=== PATIENT | female | born 1985 | race Asian ===

== ENCOUNTER 2016-05-17 08:37 | Emergency (ER) | payer OTHER ==
[~2016-05-17] VITALS: Ht 152.4 cm; Wt 66.0 kg
[~2016-05-17 08:37] MED LIST: MTR600X PO
[2016-05-17 08:41] VITALS: TEMP 36.7; Ht 152.4 cm; Wt 66.0 kg
[2016-05-17] MEDS ORDERED: SODIUM CHLORIDE 0.9% 1000ML 1,000 ML IV SCH (09:15)
--- NOTE | 2016-05-17 09:36 | EMERGENCY ROOM VISIT NOTE ---
History Report prepared by Scribe: Keeley Meadows Under the Supervision of: Dr. Elisa Gallegos M.D. First contact with patient: 08:48 Chief Complaint: ABNORMAL LABS Stated Complaint: WAS PREG., BLEEDING STARTED ON MON., HCG LEVEL UP History of Present Illness The patient is a 31 year old female who presents to the Emergency Room with complaints of persistent abnormal lab results. She is approximately 7 weeks . She reports she started experiencing vaginal bleeding 6 days ago. The patient has a history of ectopic and states she is concerned about another ectopic currently. Her most recent HCG was performed yesterday. She denies any recent abdominal pain and states she thinks her vaginal bleeding has resolved. 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 A total of 10 systems reviewed and were otherwise negative. Past Medical & Surgical Medical Problems: (1) No Known Active Medical Problems Family History Diabetes mellitus Hypertension Social History Smoking Status: Never Smoker Alcohol Use: none Drug Use: none Marital Status: Housing Status: lives with significant other Occupation Status: unemployed Current/Historical Medications Scheduled PRN Ibuprofen (Ibuprofen), 600 MG PO Q6H PRN for Pain Allergies Coded Allergies: No Known Allergies (Unverified , 05/17/16) Physical Exam Vital Signs Date Time Temp Pulse Resp B/P Pulse Ox O2 Delivery O2 Flow Rate FiO2 05/17/16 13:20 90 18 113/75 100 Room Air 05/17/16 11:18 88 16 106/77 98 Room Air 05/17/16 08:41 36.7 111 20 134/86 100 Room Air Physical Exam Vital signs reviewed. General: Well-appearing 31 year old female, in no significant distress. HEENT: No scleral icterus, PERRLA, neck supple. Atraumatic. Cardiovascular: Regular rate and rhythm, no extra sounds. Pulmonary: Clear to auscultation bilaterally, normal work of breathing. Abdomen: Soft, nontender, nondistended, positive bowel sounds. Musculoskeletal: Atraumatic, no peripheral edema. Neurologic: Patient awake alert and oriented x 3 Skin: Warm, dry, no rash Medical Decision & Procedures ER Provider Diagnostic Interpretation: This Ultrasound was reviewed and interpreted by the radiologist and reviewed by myself. PELVIC ULTRASOUND TO EVALUATE FOR ECTOPIC IMPRESSION: 1. No intrauterine gestational sac identified. If positive test, differential considerations include normal early intrauterine gestation, missed spontaneous and sonographically occult ectopic . Close clinical follow-up, including serial beta hCG levels, is recommended. 2. Suspected 1.5 cm right ovarian corpus luteal cyst. Electronically signed by: Paco Watt M.D. 05/17/2016 11:09 AM Laboratory Results 05/17/16 09:34 Red Blood Count 4.79, Mean Corpuscular Volume 86.0, Mean Corpuscular Hemoglobin 29.0, Mean Corpuscular Hemoglobin Concent 33.7, Mean Platelet Volume 9.5, Neutrophils (%) (Auto) 62.3, Lymphocytes (%) (Auto) 31.4, Monocytes (%) (Auto) 5.3, Eosinophils (%) (Auto) 0.4, Basophils (%) (Auto) 0.3, Neutrophils # (Auto) 4.44, Lymphocytes # (Auto) 2.24, Monocytes # (Auto) 0.38, Eosinophils # (Auto) 0.03, Basophils # (Auto) 0.02 05/17/16 09:34 Test 05/17/16 09:34 05/17/16 10:25 White Blood Count 7.13 K/uL (4.8-10.8) Red Blood Count 4.79 M/uL (4.2-5.4) Hemoglobin 13.9 g/dL (12.0-16.0) Hematocrit 41.2 % (37-47) Mean Corpuscular Volume 86.0 fL (80-100) Mean Corpuscular Hemoglobin 29.0 pg (25-34) Mean Corpuscular Hemoglobin Concent 33.7 g/dl (32-36) Platelet Count 364 K/uL (130-400) Mean Platelet Volume 9.5 fL (7.4-10.4) Neutrophils (%) (Auto) 62.3 % Lymphocytes (%) (Auto) 31.4 % Monocytes (%) (Auto) 5.3 % Eosinophils (%) (Auto) 0.4 % Basophils (%) (Auto) 0.3 % Neutrophils # (Auto) 4.44 K/uL (1.4-6.5) Lymphocytes # (Auto) 2.24 K/uL (1.2-3.4) Monocytes # (Auto) 0.38 K/uL (0.11-0.59) Eosinophils # (Auto) 0.03 K/uL (0-0.5) Basophils # (Auto) 0.02 K/uL (0-0.2) RDW Standard Deviation 41.0 fL (36.4-46.3) RDW Coefficient of Variation 13.0 % (11.5-14.5) Immature Granulocyte % (Auto) 0.3 % Immature Granulocyte # (Auto) 0.02 K/uL (0.00-0.02) Anion Gap 8.0 mmol/L (3-11) Est Creatinine Clear Calc Drug Dose 110.4 ml/min Estimated GFR () 138.3 Estimated GFR (Non- 119.3 BUN/Creatinine Ratio 10.2 (10-20) Calcium Level 9.1 mg/dl (8.5-10.1) Progesterone Level 1.85 ng/mL Human Chorionic Gonadotropin, Quant 162 mIU/mL Laboratory results per my review. Medications Administered Medications (Trade) Dose Ordered Sig/Celsa Route Start Time Stop Time Status Last Admin Dose Admin Sodium Chloride (Nss 1000ml) 1,000 ml @ 999 mls/hr Q1H1M IV 05/17/16 09:15 05/17/16 13:39 DC 05/17/16 09:15 999 MLS/HR ED Course 0910: Past medical records reviewed. The patient was evaluated in room A10. A complete history and physical examination was performed. 0915: NSS 1000 ml @ 999 mls/hr IV. 1145: I discussed the patients case with Edwige Diaz CURRICULUM ADVISORY TEACHER. The patient will be further evaluated. 1215: I reevaluated the patient. I reassured her on her results so far. 1320: I reevaluated the patient. She is feeling much better. I discussed her results and discharge instructions and she verbalized complete understanding and agreement. Medical Decision DDx: Etiologies such as threatened , ectopic , dysfunction uterine bleeding, bleeding dyscrasia, trauma, infection, as well as others were entertained. This patient was evaluated and appeared to be in no significant distress. IV access was obtained and laboratory work was drawn. The patient was placed on the geological science teacher and found to be in a normal sinus rhythm. Vital signs are stable. She was hydrated with normal saline solution. Laboratory work reveals a moderately elevated beta hCG at 162. Her hCG at the outside facility was 117 yesterday, by report. Ultrasound of the pelvis was performed and reveals a likely corpus luteal cyst, no IUP, no evidence of ectopic at this time. Patient has an Rh+ blood type. Case was discussed with Dr. Nicole, by my resident Dr Archer, who evaluated the patient emergency department. He feels she can be followed up as an outpatient this week. The patient was made aware of the plan and agrees. She will return to the ER for worsening of symptoms or any medical concerns. Consults Time Called: 1140 Consulting Physician: Edwige Diaz CURRICULUM ADVISORY TEACHER Returned Call: [phone] I discussed the patients case with Edwige Diaz CURRICULUM ADVISORY TEACHER. The patient will be further evaluated. Impression Primary Impression: Threatened Scribe Attestation The scribe's documentation has been prepared under my direction and personally reviewed by me in its entirety. I confirm that the note above accurately reflects all work, treatment, procedures, and medical decision making performed by me. Departure Information Dispostion Home / Self-Care Referrals James Ken M.D. (PCP) Patient Instructions My [facility] Additional Instructions -If your symptoms worsen or you experience increase in vaginal bleeding or abdominal pain, or fevers/chills, please call CURRICULUM ADVISORY TEACHER clinic or return to Emergency Dept. -Followup with CURRICULUM ADVISORY TEACHER this week for evaluation and trending of quantitative B- HCG Levels
--- NOTE | 2016-05-17 10:25 | EMERGENCY ROOM VISIT NOTE ---
History First contact with patient: 08:48 Chief Complaint: ABNORMAL LABS Stated Complaint: WAS PREG., BLEEDING STARTED ON MON., HCG LEVEL UP History of Present Illness The patient is a 31 year old female with hx of ectopic and Spontaneous Abortions x5 who presents to the Emergency Room for evaluation due to increasing quantitative B-HCG levels. Patient reports at 7 wks of she had 4 days of vaginal bleeding and clots (05/12) which has since resolved. BHCG levels since episode have monitored at [facility] and according to patient have continued to rise to 176 as of yesterday. Patient was concerned of ectopic . She denies Abdominal pain, N/V, further vaginal bleeding. Pt denies headache, change in vision, fevers, chest pain, shortness of breath, nausea, vomiting, diarrhea, pain with urination, and melena. Review of Systems See HPI for pertinent positives & negatives. A total of 10 systems reviewed and were otherwise negative. Past Medical/Surgical History Medical Problems: (1) No Known Active Medical Problems Family History Diabetes mellitus Hypertension Social History Smoking Status: Never Smoker Alcohol Use: none Drug Use: none Marital Status: Housing Status: lives with significant other Occupation Status: unemployed Current/Historical Medications Scheduled PRN Ibuprofen (Ibuprofen), 600 MG PO Q6H PRN for Pain Allergies Coded Allergies: No Known Allergies (Unverified , 05/17/16) Physical Exam Vital Signs Date Time Temp Pulse Resp B/P Pulse Ox O2 Delivery O2 Flow Rate FiO2 05/17/16 13:20 90 18 113/75 100 Room Air 05/17/16 11:18 88 16 106/77 98 Room Air 05/17/16 08:41 36.7 111 20 134/86 100 Room Air Physical Exam GENERAL: alert, well appearing, well nourished, no distress, non-toxic EYE EXAM: normal conjunctiva, PERRL and EOM's grossly intact NECK: supple, no nuchal rigidity, no adenopathy, non-tender LUNGS: Clear to auscultation. Normal chest wall mechanics HEART: no murmurs, S1 normal and S2 normal ABDOMEN: abdomen soft, non-tender, normo-active bowel sounds, no masses, no rebound or guarding. BACK: Back is symmetrical on inspection and there is no deformity, no midline tenderness SKIN: no rashes and no bruising UPPER EXTREMITIES: upper extremities are grossly normal. LOWER EXTREMITIES: No pitting edema. NEURO EXAM: Normal sensorium, cranial nerves II-XII grossly intact, normal speech, no gross weakness of arms, no gross weakness of legs. Medical Decision & Procedures ER Provider Diagnostic Interpretation: PELVIC ULTRASOUND TO EVALUATE FOR ECTOPIC CLINICAL HISTORY: . Vaginal bleeding. COMPARISON STUDY: Pelvic ultrasound March 30, 2013. TECHNIQUE: Transabdominal and transvaginal sonography of the pelvis was performed. FINDINGS: The uterus measures 7.9 x 4.4 x 5.5 cm. Endometrium measures 4 mm in thickness. No intrauterine gestational sac was identified. The right ovary measures 2.9 x 2.1 x 2 cm and the left measures 3.7 x 2.1 x 2.5 cm. Color flow is identified within each ovary. A complex cystic right ovarian lesion measuring 1.5 cm may reflect a corpus luteal cyst. No free fluid was identified. No adnexal mass is identified. IMPRESSION: 1. No intrauterine gestational sac identified. If positive test, differential considerations include normal early intrauterine gestation, missed spontaneous and sonographically occult ectopic . Close clinical follow-up, including serial beta hCG levels, is recommended. 2. Suspected 1.5 cm right ovarian corpus luteal cyst. Laboratory Results 05/17/16 09:34 Red Blood Count 4.79, Mean Corpuscular Volume 86.0, Mean Corpuscular Hemoglobin 29.0, Mean Corpuscular Hemoglobin Concent 33.7, Mean Platelet Volume 9.5, Neutrophils (%) (Auto) 62.3, Lymphocytes (%) (Auto) 31.4, Monocytes (%) (Auto) 5.3, Eosinophils (%) (Auto) 0.4, Basophils (%) (Auto) 0.3, Neutrophils # (Auto) 4.44, Lymphocytes # (Auto) 2.24, Monocytes # (Auto) 0.38, Eosinophils # (Auto) 0.03, Basophils # (Auto) 0.02 05/17/16 09:34 Test 05/17/16 09:34 05/17/16 10:25 White Blood Count 7.13 K/uL (4.8-10.8) Red Blood Count 4.79 M/uL (4.2-5.4) Hemoglobin 13.9 g/dL (12.0-16.0) Hematocrit 41.2 % (37-47) Mean Corpuscular Volume 86.0 fL (80-100) Mean Corpuscular Hemoglobin 29.0 pg (25-34) Mean Corpuscular Hemoglobin Concent 33.7 g/dl (32-36) Platelet Count 364 K/uL (130-400) Mean Platelet Volume 9.5 fL (7.4-10.4) Neutrophils (%) (Auto) 62.3 % Lymphocytes (%) (Auto) 31.4 % Monocytes (%) (Auto) 5.3 % Eosinophils (%) (Auto) 0.4 % Basophils (%) (Auto) 0.3 % Neutrophils # (Auto) 4.44 K/uL (1.4-6.5) Lymphocytes # (Auto) 2.24 K/uL (1.2-3.4) Monocytes # (Auto) 0.38 K/uL (0.11-0.59) Eosinophils # (Auto) 0.03 K/uL (0-0.5) Basophils # (Auto) 0.02 K/uL (0-0.2) RDW Standard Deviation 41.0 fL (36.4-46.3) RDW Coefficient of Variation 13.0 % (11.5-14.5) Immature Granulocyte % (Auto) 0.3 % Immature Granulocyte # (Auto) 0.02 K/uL (0.00-0.02) Anion Gap 8.0 mmol/L (3-11) Est Creatinine Clear Calc Drug Dose 110.4 ml/min Estimated GFR () 138.3 Estimated GFR (Non- 119.3 BUN/Creatinine Ratio 10.2 (10-20) Calcium Level 9.1 mg/dl (8.5-10.1) Progesterone Level 1.85 ng/mL Human Chorionic Gonadotropin, Quant 162 mIU/mL Medications Administered Medications (Trade) Dose Ordered Sig/Celsa Route Start Time Stop Time Status Last Admin Dose Admin Sodium Chloride (Nss 1000ml) 1,000 ml @ 999 mls/hr Q1H1M IV 05/17/16 09:15 05/17/16 13:39 DC 05/17/16 09:15 999 MLS/HR Medical Decision 31 yo F w/ hx of ectopic p/w Hx of vaginal bleeding x 4 days now resolved 2 days ago, hx of increasing HCG up to 117 day before arrival concerning about ectopic preg. current HCG of 162. CBC- Unremarkable BMP-unremarkable TV U/S- no intrauterine sac observed, Suspected 1.5 cm right ovarian corpus luteal cyst. RH status: Positive -Given 1 L Fluids - HX of vaginal bleeding, rising HCG likely due to threatened vs. IUP. Ectopic unlikely lack of pain. no evidence on TV U/S. -Discussed case with Dr. Nicole ( [facility] SUBCONTRACT ADMINISTRATOR), who was not suspicious of ectopic at this time and could not rule IUP vs S.A. vs Threatened , advised outpatient followup and trending of HCG. -Patient was discharged with follow up to [facility] OBGYN Impression Primary Impression: Threatened Departure Information Referrals James Kne M.D. (PCP) Patient Instructions My [facility] Resident Tracking Resident Involvement: Resident Care Provided Care Provided: Adult ED
[2016-05-17 10:41] LABS: BASO % 0.3 %; BASO ABS # 0.02 K/uL (0-0.2); COMPLETE YES; EOS % 0.4 %; HEMATOCRIT 41.2 % (37-47); IG% 0.3 %; LYMPH % 31.4 %; LYMPH ABS # 2.24 K/uL (1.2-3.4); MEAN CORPUSCULAR HGB CONC 33.7 g/dl (32-36); MEAN PLATELET VOLUME 9.5 fL (7.4-10.4); MONO % 5.3 %; NEUT % 62.3 %; PLATELET COUNT 364 K/uL (130-400); RED BLOOD COUNT 4.79 M/uL (4.2-5.4); WHITE BLOOD COUNT 7.13 K/uL (4.8-10.8)
--- NOTE | 2016-05-17 11:11 | DIAGNOSTIC IMAGING REPORT ---
PELVIC ULTRASOUND TO EVALUATE FOR ECTOPIC CLINICAL HISTORY: . Vaginal bleeding. COMPARISON STUDY: Pelvic ultrasound March 30, 2013. TECHNIQUE: Transabdominal and transvaginal sonography of the pelvis was performed. FINDINGS: The uterus measures 7.9 x 4.4 x 5.5 cm. Endometrium measures 4 mm in thickness. No intrauterine gestational sac was identified. The right ovary measures 2.9 x 2.1 x 2 cm and the left measures 3.7 x 2.1 x 2.5 cm. Color flow is identified within each ovary. A complex cystic right ovarian lesion measuring 1.5 cm may reflect a corpus luteal cyst. No free fluid was identified. No adnexal mass is identified. IMPRESSION: 1. No intrauterine gestational sac identified. If positive test, differential considerations include normal early intrauterine gestation, missed spontaneous and sonographically occult ectopic . Close clinical follow-up, including serial beta hCG levels, is recommended. 2. Suspected 1.5 cm right ovarian corpus luteal cyst. Electronically signed by: Paco Watt M.D. 05/17/2016 11:09 AM Dictated Date/Time: 05/17/2016 11:06 AM
[2016-05-17 11:22] LABS: BUN/CREATININE RATIO 10.2 (10-20); CALCIUM 9.1 mg/dl (8.5-10.1); CREATININE 0.62 mg/dl (0.60-1.20)
[2016-05-17 13:20] VITALS: BP 113/75; PULSE 90; O2SAT 100
--- NOTE | 2016-05-18 20:54 | GYNECOLOGICAL CONSULTATION ---
DATE OF CONSULTATION: 05/17/2016 Consult placed by Elisa Gallegos MD HISTORY OF PRESENT ILLNESS: This is a 31-year-old, G2, P1, who presented to the Emergency Room with vaginal bleeding. The patient is 7 weeks' and had been seen in the office with vaginal spotting. She was being watched for possible ectopic . In the ER, she had no shortness of breath, no chills, no fever. She denied any abdominal pain. She had an episode of vaginal bleeding, was concerned and that is why she came to the Emergency Room. As stated above, the patient is being watched for possible ectopic and serial hCG titers had increased from 117 to 170 in 24 hours. The patient was very concerned because she had a history of ectopic about 6 months ago and underwent a right fallopian tube removal. She is very worried that she might need a surgery and therefore came to the Emergency Room hoping for some different recommendation. PAST MEDICAL HISTORY: No history of diabetes, hypertension or asthma. PAST SURGICAL HISTORY: Right fallopian tube removed. SOCIAL HISTORY: The patient denies tobacco, drug or alcohol use. FAMILY HISTORY: Noncontributory. ALLERGIES: No known drug allergies. PHYSICAL EXAMINATION: VITAL SIGNS: Temperature 36.7, pulse 88, respirations 20 and blood pressure 134/86. HEART: S1, S2, regular rhythm and rate. LUNGS: Clear to auscultation bilaterally. ABDOMEN: Nontender, nondistended, positive bowel sounds. There is no guarding. There is no rebound. No CVA tenderness. PELVIC: There is some mild blood in the vagina. No cervical motion tenderness. The uterus is about 6 to 8 weeks' size. EXTREMITIES: No cyanosis, clubbing or edema. ASSESSMENT AND PLAN: A 31-year-old G2, P0 at 7 weeks' . The patient has history of ectopic which led to right fallopian tube removal. She is again and is having some bleeding; therefore following hCG titers. There is obviously concern for an ectopic , but at this point we have no reason to think so. We have not seen any abnormal findings presently on ultrasound to indicate an ectopic ; however, at the beta hCG this low we also cannot rule out a complete IUP. I once again had a discussion with the patient and explained the concerns. She understands that she is being monitored and she had been reassured. She will follow up with us in the office with serial hCG as we have been doing. The patient has been reassured. I have reviewed once again with her the ectopic precautions and why we are doing so. She will follow up with me in the office. She has been discharged in stable condition. BHAVYA
== END 2016-05-17 13:30 | disposition home or self-care (01) ==
LOC: C.EDB 08:38 → C.EDA 13:30
DX: O20.0 Threatened abortion (principal); Z3A.01 Less than 8 weeks gestation of pregnancy; Z83.3 Family history of diabetes mellitus; Z82.49 Family history of ischemic heart disease and other diseases of the circulatory system; Z90.79 Acquired absence of other genital organ(s)

== ENCOUNTER 2016-05-25 09:27 | Emergency (ER) | payer OTHER ==
[~2016-05-25] VITALS: Ht 152.4 cm; Wt 61.6 kg
[2016-05-25 09:41] VITALS: TEMP 36.8; Ht 152.4 cm; Wt 61.6 kg
[2016-05-25] MEDS ORDERED: PROG100C6 PO (10:03)
[2016-05-25 10:52] LABS: BASO % 0.1 %; BASO ABS # 0.01 K/uL (0-0.2); COMPLETE YES; EOS % 0.4 %; HEMATOCRIT 41.2 % (37-47); IG% 0.2 %; LYMPH % 28.7 %; LYMPH ABS # 2.34 K/uL (1.2-3.4); MEAN CELL VOLUME 86.4 fL (80-100); MEAN CORPUSCULAR HEMOGLOBIN 29.1 pg (25-34); MEAN CORPUSCULAR HGB CONC 33.7 g/dl (32-36); MEAN PLATELET VOLUME 9.5 fL (7.4-10.4); NEUT % 64.6 %; PLATELET COUNT 326 K/uL (130-400); RED BLOOD COUNT 4.77 M/uL (4.2-5.4); WHITE BLOOD COUNT 8.16 K/uL (4.8-10.8)
[2016-05-25 11:24] LABS: BUN/CREATININE RATIO 10.3 (10-20); CALCIUM 8.9 mg/dl (8.5-10.1); CREATININE 0.64 mg/dl (0.60-1.20); POTASSIUM 3.8 mmol/L (3.5-5.1)
--- NOTE | 2016-05-25 11:44 | DIAGNOSTIC IMAGING REPORT ---
ULTRASOUND TO EVALUATE FOR ECTOPIC CLINICAL HISTORY: Right lower quadrant pain. 8 weeks . COMPARISON STUDY: ultrasound May 17, 2016. FINDINGS: The uterus measures 7.8 x 4.6 x 5.8 cm. Endometrium measures 7 mm in thickness. No intrauterine gestational sac was identified. Note was made of a possible fundal fibroid measuring approximately 2.2 cm. Color flow is identified within each ovary. The left ovary is sonographically normal. A 1.4 cm echogenic right ovarian lesion may reflect a corpus luteal cyst. This likely arises from the right ovary. In addition, note is made of a 1.7 cm lesion either arising from or adjacent to the right ovary which may contain a gestational sac and yolk sac. This finding is not definitive. This has peripheral hypervascularity. There is no free fluid. IMPRESSION: No intrauterine gestational sac identified. 1.7 cm right adnexal structure. By sonography, is difficult to determine whether this arises from or is adjacent to the right ovary and this could contain a gestational sac with yolk sac. This could reflect an ectopic or corpus luteal cyst. Given positive test, differential considerations include an ectopic , normal early intrauterine gestation and missed spontaneous . No free fluid. Correlation with beta hCG levels is recommended. Discussed with Dr. Gallegos time of dictation. Electronically signed by: Paco Watt M.D. 05/25/2016 11:42 AM Dictated Date/Time: 05/25/2016 11:31 AM
[2016-05-25 13:05] LABS: ALKALINE PHOSPHATASE 86 U/L (45-117); ALT/SGPT 18 U/L (12-78); AST/SGOT 11 U/L (15-37)
[2016-05-25] MEDS ORDERED: METHOTREXATE SOD IM ONE (13:30)
[2016-05-25 14:15] VITALS: BP 123/68; PULSE 72; O2SAT 99
--- NOTE | 2016-05-25 17:13 | EMERGENCY ROOM VISIT NOTE ---
History Report prepared by Anneliese: Rupa Magdaleno Under the Supervision of: Dr. Elisa Gallegos M.D. First contact with patient: 09:46 Chief Complaint: ABDOMINAL PAIN Stated Complaint: 8 WEEKS / PAIN ON RIGHT SIDE Nursing Triage Summary: Patient states she is 8 weeks and began having lower right pelvic/abdominal pain about 30 minutes ago. Denies vaginal bleeding. Hx ectopic . History of Present Illness The patient is a 31 year old female who presents to the Emergency Room with complaints of persistent abdominal pain on the right side starting this morning. She rates her discomfort as a 3.5/10. The patient is 8 weeks and has a history of ectopic . She has been to the ED recently for concerns about her . She had an US which was normal. She has not had an US since that visit and is scheduled for an US appointment tomorrow. She tried to contact her [employer] today, but presents to the ED after being unable to get in contact. She denies any vaginal bleeding. Her hormone level was last tested on Thursday at which time it was 2300. Source of History: patient Onset: this morning Position: abdomen (right sided) Symptom Intensity: 3.5/10 Timing: other (persistent) Note: Pt denies any vaginal bleeding. Review of Systems See HPI for pertinent positives & negatives. A total of 10 systems reviewed and were otherwise negative. Past Medical & Surgical Medical Problems: (1) Ectopic Family History Diabetes mellitus Hypertension Social History Smoking Status: Never Smoker Alcohol Use: none Drug Use: none Marital Status: Housing Status: lives with significant other Occupation Status: unemployed Current/Historical Medications Miscellaneous Medications Progesterone (Prometrium), Unknown Dose PO Allergies Coded Allergies: No Known Allergies (Unverified , 05/25/16) Physical Exam Vital Signs Date Time Temp Pulse Resp B/P Pulse Ox O2 Delivery O2 Flow Rate FiO2 05/25/16 14:15 72 16 123/68 99 05/25/16 11:31 98 16 106/76 05/25/16 09:41 36.8 99 20 122/85 100 Room Air Physical Exam Vital signs reviewed. General: Well-appearing, in no significant distress. HEENT: No scleral icterus, PERRLA, neck supple. Atraumatic. Cardiovascular: Regular rate and rhythm, no extra sounds. Pulmonary: Clear to auscultation bilaterally, normal work of breathing. Abdomen: Soft, mild tenderness to palpation in the RLQ, no rebound, no guarding. Nondistended, positive bowel sounds. Musculoskeletal: Atraumatic, no peripheral edema. Neurologic: Patient awake alert and oriented x 3, full strength in all 4 extremities. Cranial nerves 2 through 12 grossly intact. Skin: Warm, dry, no rash Medical Decision & Procedures ER Provider Diagnostic Interpretation: Radiology results as stated below per my review and radiologist interpretation: ULTRASOUND TO EVALUATE FOR ECTOPIC CLINICAL HISTORY: Right lower quadrant pain. 8 weeks . COMPARISON STUDY: ultrasound May 17, 2016. FINDINGS: The uterus measures 7.8 x 4.6 x 5.8 cm. Endometrium measures 7 mm in thickness. No intrauterine gestational sac was identified. Note was made of a possible fundal fibroid measuring approximately 2.2 cm. Color flow is identified within each ovary. The left ovary is sonographically normal. A 1.4 cm echogenic right ovarian lesion may reflect a corpus luteal cyst. This likely arises from the right ovary. In addition, note is made of a 1.7 cm lesion either arising from or adjacent to the right ovary which may contain a gestational sac and yolk sac. This finding is not definitive. This has peripheral hypervascularity. There is no free fluid. IMPRESSION: No intrauterine gestational sac identified. 1.7 cm right adnexal structure. By sonography, is difficult to determine whether this arises from or is adjacent to the right ovary and this could contain a gestational sac with yolk sac. This could reflect an ectopic or corpus luteal cyst. Given positive test, differential considerations include an ectopic , normal early intrauterine gestation and missed spontaneous . No free fluid. Correlation with beta hCG levels is recommended. Discussed with Dr. Gallegos time of dictation. Electronically signed by: Paco Watt M.D. 05/25/2016 11:42 AM Dictated Date/Time: 05/25/2016 11:31 AM Laboratory Results 05/25/16 10:30 Red Blood Count 4.77, Mean Corpuscular Volume 86.4, Mean Corpuscular Hemoglobin 29.1, Mean Corpuscular Hemoglobin Concent 33.7, Mean Platelet Volume 9.5, Neutrophils (%) (Auto) 64.6, Lymphocytes (%) (Auto) 28.7, Monocytes (%) (Auto) 6.0, Eosinophils (%) (Auto) 0.4, Basophils (%) (Auto) 0.1, Neutrophils # (Auto) 5.27, Lymphocytes # (Auto) 2.34, Monocytes # (Auto) 0.49, Eosinophils # (Auto) 0.03, Basophils # (Auto) 0.01 05/25/16 10:30 Test 05/25/16 10:30 White Blood Count 8.16 K/uL (4.8-10.8) Red Blood Count 4.77 M/uL (4.2-5.4) Hemoglobin 13.9 g/dL (12.0-16.0) Hematocrit 41.2 % (37-47) Mean Corpuscular Volume 86.4 fL (80-100) Mean Corpuscular Hemoglobin 29.1 pg (25-34) Mean Corpuscular Hemoglobin Concent 33.7 g/dl (32-36) Platelet Count 326 K/uL (130-400) Mean Platelet Volume 9.5 fL (7.4-10.4) Neutrophils (%) (Auto) 64.6 % Lymphocytes (%) (Auto) 28.7 % Monocytes (%) (Auto) 6.0 % Eosinophils (%) (Auto) 0.4 % Basophils (%) (Auto) 0.1 % Neutrophils # (Auto) 5.27 K/uL (1.4-6.5) Lymphocytes # (Auto) 2.34 K/uL (1.2-3.4) Monocytes # (Auto) 0.49 K/uL (0.11-0.59) Eosinophils # (Auto) 0.03 K/uL (0-0.5) Basophils # (Auto) 0.01 K/uL (0-0.2) RDW Standard Deviation 41.5 fL (36.4-46.3) RDW Coefficient of Variation 13.1 % (11.5-14.5) Immature Granulocyte % (Auto) 0.2 % Immature Granulocyte # (Auto) 0.02 K/uL (0.00-0.02) Anion Gap 9.0 mmol/L (3-11) Est Creatinine Clear Calc Drug Dose 103.5 ml/min Estimated GFR () 136.8 Estimated GFR (Non- 118.1 BUN/Creatinine Ratio 10.3 (10-20) Calcium Level 8.9 mg/dl (8.5-10.1) Total Bilirubin 0.6 mg/dl (0.2-1) Direct Bilirubin < 0.1 mg/dl (0-0.2) Aspartate Amino Transf (AST/SGOT) 11 U/L (15-37) Alanine Aminotransferase (ALT/SGPT) 18 U/L (12-78) Alkaline Phosphatase 86 U/L (45-117) Total Protein 8.2 gm/dl (6.4-8.2) Albumin 4.0 gm/dl (3.4-5.0) Human Chorionic Gonadotropin, Quant 4174 mIU/mL Laboratory results per my review. Medications Administered Medications (Trade) Dose Ordered Sig/Celsa Route Start Time Stop Time Status Last Admin Dose Admin Methotrexate Sodium/Syringe (Methotrexate Sodium PF/Syringe) 3.2 ml @ 0 mls/min NOW ONCE IM 05/25/16 13:30 05/25/16 13:31 DC 05/25/16 13:23 80 MLS/MIN ED Course 0953: Past medical records reviewed. The patient was evaluated in room B6. A complete history and physical examination was performed. 1149: I discussed the patient's case with Edwige Vaughan [employer]. He will evaluate the patient. 1151: I reevaluated the patient. She is resting comfortably. I updated her and her on the results. 1330: Methotrexate Sodium 80 mg/Syringe 3.2 ml @ 0 mls/min IM. 1354: Upon reevaluation, the patient appeared to have improvement of her symptoms. I discussed findings with her. She verbalized agreement of the treatment plan. She was discharged home. Medical Decision Differential diagnosis: Etiologies such as ectopic , dysfunction uterine bleeding, bleeding dyscrasia, trauma, infection, as well as others were entertained. This patient was evaluated and appeared to be in no significant distress. Physical examination is concerning for a right lower quadrant tenderness without rebound. Patient has a positive beta hCG. Previous examination last week reveals a modest hCG level. Today there is over 4000. Ultrasound of the pelvis reveals a right adnexal mass. There is no intrauterine . At this time the patient is considered an ectopic . The case was discussed with Dr. Chanel of [employer]. He did arrive in the ER to evaluate the patient for definitive management. They have agreed on methotrexate therapy. Patient was given medications per Dr. Chanel. She will follow-up with her OB/ SANIPRACTIC PHYSICIAN this week for reevaluation return to the ER for worsening of symptoms or any medical concerns. Consults Time Called: 1144 Consulting Physician: Edwige Vaughan [employer] Returned Call: [phone] I reviewed the patient's case with him. He will evaluate the patient. Impression Primary Impression: Ectopic Scribe Attestation The scribe's documentation has been prepared under my direction and personally reviewed by me in its entirety. I confirm that the note above accurately reflects all work, treatment, procedures, and medical decision making performed by me. Departure Information Dispostion Home / Self-Care Referrals James Ken M.D. (PCP) Forms Call Back Authorization, HOME CARE DOCUMENTATION FORM, IMPORTANT VISIT INFORMATION Patient Instructions Ectopic Preg Methotrexate Tx, [facility] Additional Instructions Diagnosis: Ectopic . Your given methotrexate. Please anticipate bleeding. Follow-up with [employer] within 4 days for repeat laboratory work. Tylenol 650 mg every 6 hours as needed for pain. Return to the emergency department for worsening of symptoms or any medical concerns. Problem Qualifiers Primary Impression: Ectopic Location of ectopic : tubal Intrauterine status: without intrauterine Qualified Codes: O00.10 - Tubal without intrauterine
--- NOTE | 2016-05-25 17:36 | CONSULTATION REPORT ---
DATE OF CONSULTATION: 05/25/2016 REASON FOR CONSULTATION: Ectopic . HISTORY OF PRESENT ILLNESS: The patient is a 31-year-old female, para 0-0-3-0, who presents to the ER at approximately 8 weeks with right-sided abdominal pain. She has been followed by Dr. Christina in [place] for early . Her hCG on Thursday was 2300. Today when she presented to the ER, it was 4174. The patient has a history of an ectopic on the left with a left salpingectomy done by Dr. Benavidez. Ultrasound that was done today reveals no evidence of an intrauterine . There is a 1.7 cm right adnexal lesion adjacent to the ovary, which may or may not contain a gestational sac or yolk sac. This was not definitive. There is no free fluid. No fluid in the cul-de-sac, otherwise normal blood flow by Doppler of both ovaries. This was compared to a prior ultrasound on 05/17/2016 with no evidence of a viable . Discussion was made with the patient regarding the possibility of an ectopic. PHYSICAL EXAMINATION: VITAL SIGNS: The patient has normal vital signs with a pulse of 98, respiratory rate of 16, blood pressure 106/76, pulse ox 100 on room air. APPEARANCE: She is alert and oriented x3. She is in no acute distress. LUNGS: Clear to auscultation. HEART: Regular rate and rhythm. ABDOMEN: Soft, nontender in all 4 quadrants. EXTREMITIES: Within normal limits. LABORATORY DATA: White blood cell count 8.16, hemoglobin 13.9, hematocrit 41.2, platelet count 326. Chemistries are all within normal limits. Beta hCG 4174 today. ASSESSMENT: Possible ruptured ectopic on the right. PLAN: Discussed with patient we will use methotrexate 50 mg xbsa, which is 1.58, which equals 80 mg of methotrexate. We will have patient follow up with us in the office on Thursday and Thursday for followup hCG and labs. The patient to return to ER if any signs of acute abdomen and ectopic precautions are given. The patient understands instructions and will follow up with us in the office.
== END 2016-05-25 14:17 | disposition home or self-care (01) ==
LOC: C.EDB 09:28
DX: O99.89 Other specified diseases and conditions complicating pregnancy, childbirth and the puerperium (principal); R10.31 Right lower quadrant pain; Z3A.08 8 weeks gestation of pregnancy

== ENCOUNTER 2016-05-31 11:43 | Emergency (ER) | payer OTHER ==
[~2016-05-31] VITALS: Ht 152.4 cm; Wt 68.0 kg
[~2016-05-31 11:43] MED LIST changes: +CEFAZOLIN 2000 MG/60 ML D5W 60 ML IV SCH; -MTR600X PO; +PROG100C6 PO
[2016-05-31 11:51] VITALS: Ht 152.4 cm; Wt 68.0 kg
[2016-05-31] MEDS ORDERED: ONDANSETRON INJ 2 MG/ML 2 ML VIAL IV STA (12:37)
[2016-05-31] MEDS ORDERED: SODIUM CHLORIDE 0.9% 1000ML 1,000 ML IV STA ×2 (12:37→13:27)
[2016-05-31 13:24] LABS: HEMATOCRIT 31.4 % (37-47); MEAN CELL VOLUME 86.7 fL (80-100); MEAN CORPUSCULAR HEMOGLOBIN 30.1 pg (25-34); MEAN CORPUSCULAR HGB CONC 34.7 g/dl (32-36); MEAN PLATELET VOLUME 9.4 fL (7.4-10.4); PLATELET COUNT 277 K/uL (130-400); RED BLOOD COUNT 3.62 M/uL (4.2-5.4); WHITE BLOOD COUNT 19.59 K/uL (4.8-10.8)
[2016-05-31 13:36] LABS: INR 1.1 (0.9-1.1); PARTIAL THROMBOPLASTIN RATIO 0.8; PROTHROMBIN TIME (PATIENT) 11.9 SECONDS (9.0-12.0)
[2016-05-31 13:41] LABS: BUN/CREATININE RATIO 6.9 (10-20); CALCIUM 8.8 mg/dl (8.5-10.1); CREATININE 0.69 mg/dl (0.60-1.20); POTASSIUM 3.8 mmol/L (3.5-5.1)
[2016-05-31 13:51] LABS: BASO % 0.1 %; BASO ABS # 0.02 K/uL (0-0.2); COMPLETE YES; IG% 0.4 %; LYMPH % 7.6 %; LYMPH ABS # 1.49 K/uL (1.2-3.4); MONO % 3.3 %; NEUT % 88.6 %
--- NOTE | 2016-05-31 14:23 | DIAGNOSTIC IMAGING REPORT ---
PELVIC ULTRASOUND, TRANSABDOMINAL AND TRANSVAGINAL HISTORY: EVALUATE OB-NEUROLOGY DIRECTOR/VAGINAL BLEEDING COMPARISON: Pelvic ultrasound 05/25/2016. FINDINGS: Uterus: 8.7 x 4.5 x 6.2 cm. The uterus is retroflexed. Small hypoechoic lesion at the uterine fundus favors a fibroid. This measures 5 mm. Endometrial stripe: 5 mm in thickness. No intrauterine gestational sac identified. Right ovary: Normal in size and contains a few small cysts. There is normal color-flow the right ovary. However, there is a tubular structure which appears to be adjacent to the right ovary within the right adnexa which measures 3.3 x 2.4 cm. This previous measured 1.4 x 1.4 cm. This is difficult to separate from the ovary. However, given the increase in size and hemoperitoneum, this finding is highly suspicious for a ruptured ectopic . This should be confirmed with beta-hCG. Left ovary: Normal in size and demonstrates normal color flow. Miscellaneous:Moderate complex fluid seen throughout the pelvis most pronounced within the right adnexa. This is consistent with hemoperitoneum. This is significantly progressed. IMPRESSION: There is a tubular structure which appears to be adjacent to the right ovary within the right adnexa which measures 3.3 x 2.4 cm. This previously measured 1.4 x 1.4 cm. This is difficult to separate from the ovary. However, given the increase in size and moderate hemoperitoneum, this finding is consistent with a ruptured ectopic until proven otherwise. [employer] consultation is recommended. Findings were discussed with Dr. Castelan at 2:20 PM on 05/31/2016. Electronically signed by: James Cloud M.D. 05/31/2016 2:21 PM Dictated Date/Time: 05/31/2016 2:11 PM
--- NOTE | 2016-05-31 15:02 | EMERGENCY ROOM VISIT NOTE ---
History Report prepared by Anneliese: Jasiel Fisher Under the Supervision of: Dr. Satinder Castelan D.O. First contact with patient: 12:24 Chief Complaint: SYNCOPE Stated Complaint: SYNCOPE Nursing Triage Summary: Patient presents to room A4B with spouse via [facility] with c/o syncope Patient had two episodes of nausea, vomiting and diarrhea this morning with syncopal episodes witnessed by her Denies injury EMS called and patient was going to refuse but had a near syncopal episode when standing up In addition to the symptoms today, patient was given medical treatment with Methotrexate a week ago for ectopic Is a patient of Dr De Anda at [facility] CUSTOMER EXPERIENCE CONSULTANT Denies vaginal hemorrhage or discharge History of Present Illness The patient is a 31 year old female who presents to the Emergency Room with complaints of an episode of syncope occurring this morning. Per the patient and her significant other, she had a right-sided ectopic last week diagnosed by ultrasound, and her last hCG was 3 days ago. She has been treated with methotrexate last week. This morning she developed sharp abdominal pain after having an episode of diarrhea. She denies having any blood in her stool. She took a Tums and went back to sleep. Later, she asked her significant other to grab her a glass of water, and upon returning, he notes she was lying down unconscious on the bathroom floor. He summoned EMS, and when they arrived she was feeling better and speaking with EMS. They asked her to stand and she felt dizzy upon standing. The patient has had 2 episodes of diarrhea and vomiting today, and still has abdominal pain. She denies having any vaginal bleeding or current nausea. Source of History: patient, spouse/significant other Onset: this morning Position: other (global) Quality: other (syncope) Timing: other (episode) Associated Symptoms: + abdominal pain, + diarrhea, + vomiting, No nausea Review of Systems See HPI for pertinent positives & negatives. A total of 10 systems reviewed and were otherwise negative. Past Medical & Surgical Medical Problems: (1) Ectopic Family History Diabetes mellitus Hypertension Social History Smoking Status: Never Smoker Alcohol Use: none Drug Use: none Marital Status: Housing Status: lives with significant other Occupation Status: unemployed Current/Historical Medications No Active Prescriptions or Reported Meds Allergies Coded Allergies: No Known Allergies (Unverified , 05/25/16) Physical Exam Vital Signs Date Time Temp Pulse Resp B/P Pulse Ox O2 Delivery O2 Flow Rate FiO2 05/31/16 14:36 98 20 100 05/31/16 14:32 103/66 05/31/16 14:30 114/65 05/31/16 14:26 101/75 05/31/16 13:15 82 16 85/54 100 Room Air 97 73/56 05/31/16 13:10 83 16 101/65 100 Room Air 05/31/16 12:47 79 05/31/16 11:51 37.0 75 16 107/66 100 Room Air 05/31/16 11:51 100 Room Air Physical Exam CONSTITUTIONAL/VITAL SIGNS: Reviewed / noted above. GENERAL: Non-toxic in appearance. INTEGUMENTARY: Warm, dry, and [place]. HEAD: Normocephalic. EYES: without scleral icterus or trauma. ENT/OROPHARYNX: clear and moist. LYMPHADENOPATHY/NECK: Is supple without lymphadenopathy or meningismus. RESPIRATORY: Lungs clear and equal. CARDIOVASCULAR: Regular rate and rhythm. GI/ABDOMEN: Mild tenderness to the lower abdomen diffusely. No organomegaly or pulsatile mass. No rebound or guarding. Normal bowel sounds. EXTREMITIES: Warm and well perfused. BACK: No CVA tenderness. NEUROLOGICAL: Intact without focal deficits. PSYCHIATRIC: normal affect. MUSCULOSKELETAL: Normally developed with good muscle tone. Medical Decision & Procedures ER Provider Diagnostic Interpretation: Radiology results as stated below per my review and radiologist interpretation: PELVIC ULTRASOUND, TRANSABDOMINAL AND TRANSVAGINAL FINDINGS: Uterus: 8.7 x 4.5 x 6.2 cm. The uterus is retroflexed. Small hypoechoic lesion at the uterine fundus favors a fibroid. This measures 5 mm. Endometrial stripe: 5 mm in thickness. No intrauterine gestational sac identified. Right ovary: Normal in size and contains a few small cysts. There is normal color-flow the right ovary. However, there is a tubular structure which appears to be adjacent to the right ovary within the right adnexa which measures 3.3 x 2.4 cm. This previous measured 1.4 x 1.4 cm. This is difficult to separate from the ovary. However, given the increase in size and hemoperitoneum, this finding is highly suspicious for a ruptured ectopic . This should be confirmed with beta-hCG. Left ovary: Normal in size and demonstrates normal color flow. Miscellaneous:Moderate complex fluid seen throughout the pelvis most pronounced within the right adnexa. This is consistent with hemoperitoneum. This is significantly progressed. IMPRESSION: There is a tubular structure which appears to be adjacent to the right ovary within the right adnexa which measures 3.3 x 2.4 cm. This previously measured 1.4 x 1.4 cm. This is difficult to separate from the ovary. However, given the increase in size and moderate hemoperitoneum, this finding is consistent with a ruptured ectopic until proven otherwise. CUSTOMER EXPERIENCE CONSULTANT consultation is recommended. Findings were discussed with Dr. Castelan at 2:20 PM on 05/31/2016. Electronically signed by: James Cloud M.D. 05/31/2016 2:21 PM Dictated Date/Time: 05/31/2016 2:11 PM Laboratory Results 05/31/16 13:10 Red Blood Count 3.62, Mean Corpuscular Volume 86.7, Mean Corpuscular Hemoglobin 30.1, Mean Corpuscular Hemoglobin Concent 34.7, Mean Platelet Volume 9.4, Neutrophils (%) (Auto) 88.6, Lymphocytes (%) (Auto) 7.6, Monocytes (%) (Auto) 3.3, Eosinophils (%) (Auto) 0.0, Basophils (%) (Auto) 0.1, Neutrophils # (Auto) 17.35, Lymphocytes # (Auto) 1.49, Monocytes # (Auto) 0.65, Eosinophils # (Auto) 0.00, Basophils # (Auto) 0.02 05/31/16 13:10 Test 05/31/16 13:10 White Blood Count 19.59 K/uL (4.8-10.8) Red Blood Count 3.62 M/uL (4.2-5.4) Hemoglobin 10.9 g/dL (12.0-16.0) Hematocrit 31.4 % (37-47) Mean Corpuscular Volume 86.7 fL (80-100) Mean Corpuscular Hemoglobin 30.1 pg (25-34) Mean Corpuscular Hemoglobin Concent 34.7 g/dl (32-36) Platelet Count 277 K/uL (130-400) Mean Platelet Volume 9.4 fL (7.4-10.4) Neutrophils (%) (Auto) 88.6 % Lymphocytes (%) (Auto) 7.6 % Monocytes (%) (Auto) 3.3 % Eosinophils (%) (Auto) 0.0 % Basophils (%) (Auto) 0.1 % Neutrophils # (Auto) 17.35 K/uL (1.4-6.5) Lymphocytes # (Auto) 1.49 K/uL (1.2-3.4) Monocytes # (Auto) 0.65 K/uL (0.11-0.59) Eosinophils # (Auto) 0.00 K/uL (0-0.5) Basophils # (Auto) 0.02 K/uL (0-0.2) RDW Standard Deviation 41.0 fL (36.4-46.3) RDW Coefficient of Variation 12.8 % (11.5-14.5) Immature Granulocyte % (Auto) 0.4 % Immature Granulocyte # (Auto) 0.08 K/uL (0.00-0.02) Prothrombin Time 11.9 SECONDS (9.0-12.0) Prothromb Time International Ratio 1.1 (0.9-1.1) Activated Partial Thromboplast Time 21.6 SECONDS (21.0-31.0) Partial Thromboplastin Ratio 0.8 Anion Gap 10.0 mmol/L (3-11) Est Creatinine Clear Calc Drug Dose 100.7 ml/min Estimated GFR () 133.5 Estimated GFR (Non- 115.2 BUN/Creatinine Ratio 6.9 (10-20) Calcium Level 8.8 mg/dl (8.5-10.1) Total Bilirubin 0.5 mg/dl (0.2-1) Aspartate Amino Transf (AST/SGOT) 10 U/L (15-37) Alanine Aminotransferase (ALT/SGPT) 20 U/L (12-78) Alkaline Phosphatase 82 U/L (45-117) Total Protein 7.2 gm/dl (6.4-8.2) Albumin 3.6 gm/dl (3.4-5.0) Globulin 3.6 gm/dl (2.5-4.0) Albumin/Globulin Ratio 1.0 (0.9-2) Human Chorionic Gonadotropin, Quant 3013 mIU/mL Laboratory results as stated above per my review. Medications Administered Medications (Trade) Dose Ordered Sig/Celsa Route Start Time Stop Time Status Last Admin Dose Admin Sodium Chloride 1,000 ml @ 999 mls/hr Q1H1M STAT IV 05/31/16 12:37 05/31/16 13:37 DC 05/31/16 12:55 999 MLS/HR Sodium Chloride (Nss 1000ml) 1,000 ml @ 999 mls/hr Q1H1M STAT IV 05/31/16 13:27 05/31/16 14:27 DC 05/31/16 13:15 999 MLS/HR ED Course 1229: Previous medical records were reviewed. The patient was evaluated in room A4B. A complete history and physical examination was performed. 1237: Ordered NSS 1,000 ml @ 999 mls/hr IV, and Zofran Inj 4 mg IV. 1327: Ordered NSS 1,000 ml @ 999 mls/hr IV. 1440: Discussed the patient's case with Dr. Benavidez. The patient will be evaluated for further treatment and disposition. 1452: Dr. Benavidez is at bedside with the patient. Medical Decision Differential includes acute cardiac dysrhythmia, microinfarction, CVA, TIA, dehydration, anemia, electrolyte disturbance, seizure, trauma, intracranial bleeding, acute vascular catastrophe, thoracic aortic dissection, PE, abdominal aortic aneurysm rupture, ectopic rupture. This is a 31-year-old female who presents to the ED with a chief complaint of syncope. The patient had an episode of dry heaves and diarrhea this morning 2. She was also having some generalized lower abdominal pain. The patient was here last Thursday and had methotrexate for an ectopic on the right. She followed up with her doctor for an hCG on Thursday and it was heading in the right direction according to the patient's . The patient's laboratory studies were not performed here. The patient denies any vaginal bleeding. EMS picked up the patient and when they stood her up she became near syncopal. They brought her in for evaluation. She denies any injuries. Vital signs are currently stable. Blood pressure is on the lower end of normal. Lower abdomen is mildly tender. Her exam was otherwise unremarkable. She was treated with 2 L normal saline IV. She currently denies any nausea. She did not want pain medication. The patient's white blood cell count was 19.59. Hemoglobin is 10.9. Complete metabolic panel is normal. HCG is 3013. This is down from about 4000, 6 days ago. Pelvic ultrasound reveals evidence of a ruptured ectopic with hemoperitoneum. The patient's blood pressure has been staying around 90 systolic. She is orthostatic with blood pressures dropping into the 80s. The patient was treated with 2 L of normal saline IV. She has 2 IVs established. I spoke with Dr. Mistry, CUSTOMER EXPERIENCE CONSULTANT, who will see the patient for further inpatient operative evaluation. Consults Time Called: 1435 Consulting Physician: Dr. Benavidez, OB-SENIOR PATROL AGENT Returned Call: [phone] Discussed the patient's case with Dr. Benavidez. The patient will be evaluated for further treatment and disposition. Impression Primary Impression: Ruptured ectopic Additional Impressions: Hypotension Syncope Scribe Attestation The scribe's documentation has been prepared under my direction and personally reviewed by me in its entirety. I confirm that the note above accurately reflects all work, treatment, procedures, and medical decision making performed by me. Departure Information Dispostion Being Evaluated By Surgeon Prescriptions No Active Prescriptions or Reported Meds Referrals James Ken M.D. (PCP) Patient Instructions [facility] Problem Qualifiers
[2016-05-31] MEDS ORDERED: LACTATED RINGER'S 1000ML 1,000 ML IV SCH (15:19)
[2016-05-31 15:22] VITALS: O2SAT 99
[2016-05-31] MEDS ORDERED: BUPIVACAINE 0.5 % 5 MG/1 ML MPF 30ML VIAL ONE (15:24)
[2016-05-31] MEDS ORDERED: FENTANYL CITRATE INJ 50 MCG/1 ML 2 ML VIAL ONE ×3 (15:35→17:50)
[2016-05-31] MEDS ORDERED: DEXAMETHASONE SOD INJ 4 MG/ML VIAL ONE (15:36)
[2016-05-31] MEDS ORDERED: ONDANSETRON INJ 2 MG/ML 2 ML VIAL ONE (15:36)
[2016-05-31] MEDS ORDERED: ROCURONIUM BROMID 50MG/5ML SYR ONE (15:36)
[2016-05-31] MEDS ORDERED: LIDOCAINE HCL 2% 2 ML VIAL (20MG/ML) ONE (15:36)
[2016-05-31] MEDS ORDERED: SUCCINYLCHOLINE 100MG/5ML SYR IV ONE (15:37)
[2016-05-31] MEDS ORDERED: MIDAZOLAM HCL 1 MG/ML 2ML VIAL ONE (15:38)
--- NOTE | 2016-05-31 16:25 | HISTORY & PHYSICAL EXAMINATION ---
DATE OF ADMISSION: 05/31/2016 CHIEF COMPLAINT: Abdominal pain and syncope. HISTORY OF PRESENT ILLNESS: The patient is a 31-year-old female who presents to the Emergency Room with complaints of an episode of severe abdominal pain that occurred around 9:30 a.m. this morning along with 2 episodes of syncope. The patient has a known right-sided ectopic which was diagnosed last Thursday by ultrasound. She was given methotrexate on 05/25/2016. She was being followed in the outpatient setting. Her hCG was 4000 three days ago and was scheduled to repeat her hCG tomorrow. She does have a history of a prior ectopic in the left fallopian tube which required surgical removal of the left tube in 2015. On arrival to the Emergency Room a pelvic ultrasound was ordered and showed the uterus measuring 8.7 x 4.5 x 6.2 cm, endometrial stripe was 5 mm in thickness, no intrauterine gestational sac was identified. The right ovary was normal in size and contained a few small cysts. There was normal color flow to the right ovary. There was a tubular structure which appears to be adjacent to the right ovary within the right adnexa measuring 3.3 x 2.4 cm. This previously measured 1.4 x 1.4 cm last week. There was an increase in size to the and hemoperitoneum was identified. The findings were highly suspicious for ruptured ectopic . After a long discussion with patient and , they both agreed to proceed with a laparoscopy with possible salpingostomy, possible salpingectomy. They indicated that if the tube is indeed ruptured, they prefer that the right tube be removed. We discussed the risks, benefits, alternatives to the surgery and an informed consent was obtained. PAST MEDICAL HISTORY: The patient denies any previous medical history. PAST SURGICAL HISTORY: She had a laparoscopy with a left salpingectomy. SOCIAL HISTORY: The patient denies tobacco, alcohol or drug use. She is currently and lives with her and is currently unemployed. ALLERGIES: No known drug allergies. PHYSICAL EXAMINATION: VITAL SIGNS: Blood pressure is 103/66, heart rate of 98, respiration rate of 20, temperature 37.0 Celsius, pulse ox 100% on room air. GENERAL: The patient is awake, alert and oriented x3. She is in mild distress from her pain. HEART: Regular rate and rhythm. LUNGS: Clear to auscultation bilaterally. ABDOMEN: Soft, no rebound or guarding noted. She does have some tenderness, right greater than left. Bowel sounds present x4. EXTREMITIES: No clubbing, cyanosis or calf tenderness. LABORATORY DATA: White blood cell count is 19.59, hemoglobin of 10.9, hematocrit of 31.4, platelet count 277. Sodium is 141, potassium 3.8, chloride 107, bicarbonate is 24, BUN of 5, creatinine is 0.69, glucose is 102, calcium 8.8, AST 10, ALT 20, alkaline phosphatase 82, total protein 7.2, albumin 3.6, globulin 3.6. HCG is 3013. PT is 11.9, INR is 1.1, PTT of 21.6. IMAGING IMPRESSION: Pelvic ultrasound there is a tubular structure which appears to be adjacent to the right ovary within the right adnexa which measured 3.3 x 2.4 cm, previously measured 1.4 x 1.4 cm. This was difficult to separate from the ovary; however, given the increase in size and moderate hemoperitoneum, this finding is consistent with a ruptured ectopic until proven otherwise. ASSESSMENT AND PLAN: A 31-year-old with a known right ectopic and possible ruptured ectopic will be admitted to [facility] service and will proceed with a laparoscopy with possible right salpingostomy and possible right salpingectomy. BHAVYA
[2016-05-31] MEDS ORDERED: NEOSTIGMINE METHYLSULFATE 5 MG/5 ML SYR ONE (17:05)
[2016-05-31] MEDS ORDERED: PROPOFOL IV EMULSION 10 MG/ML 20 ML VIAL IV ONE (17:05)
[2016-05-31] MEDS ORDERED: GLYCOPYRROLATE INJ 0.2 MG/ML VIAL ONE (17:05)
[2016-05-31] MEDS ORDERED: SODIUM CHLORIDE 0.9% 1000ML 1,000 ML IV SCH (17:47)
--- NOTE | 2016-05-31 17:51 | [facility] Post Operative Brief Note ---
Immediate Operative Summary Operative Date May 31, 2016. Pre-Operative Diagnosis possible ruptured ectopic Post-Operative Diagnosis ruptured ectopic Procedure(s) Performed Laparoscopic Right Salpingectomy, evacuation of hemoperitoneum Surgeon Dr. Arnaud Benavidez Technical Aide Surgeon(s) none Estimated Blood Loss 570ML Findings Upon laparoscopic exam a large amount of blood and clots were noted in the abdomen. Approximately >500 cc of blood was evacuated from the abdomen and pelvis. The right fallopian tube was dilated and a 1-2 cm portion of the tube was ruptured and actively bleeding therefore the decision was made to proceed with removal of the tube as discussed prior to her surgery. A right salpingectomy was performed without difficulty and removed from the abdomen and sent to pathology. Patient tolerated the procedure well and was sent to recovery with stable vital signs. Fluids (cc crystalloids) 1800 Specimens A. Right Fallopian Tube Drains Noel gravity Anesthesia General Complication(s) None Disposition Recovery Room / PACU
[2016-05-31] MEDS ORDERED: OXYC-57 PO (17:52)
--- NOTE | 2016-05-31 17:54 | Discharge Instructions ---
Discharge Instructions Date of Service May 31, 2016. Admission Reason for Admission: Syncope Discharge Discharge Diagnosis / Problem: ruptured right ectopic , s/p laparoscopice right salpingectomy Discharge Goals Goal(s): Routine recovery after surgery Activity Recommendations Activity Limitations: per Instructions/Follow-up section . Instructions / Follow-Up Instructions / Follow-Up SPECIAL CARE INSTRUCTIONS: * Check temperature twice daily for one week. Report any elevation over 100.4 degrees Fahrenheit (38.0 degrees Celsius). * Call office in the next few days for return appointment. * You may experience some vaginal spotting and/or bleeding, this is normal for one or two weeks and should not alarm you. * Post-operative discomfort may consist of a sore throat, a "bloated" feeling and pain in the shoulders. These are normal symptoms which usually only last for two or three days. FOLLOW UP VISIT: Make an appointment for 1 week for postop check. Current Hospital Diet Patient's current hospital diet: Discharge Diet Recommended Diet: Regular Diet Procedures Procedures Performed: Laparoscopic Right Salpingectomy, evacuation of hemoperitoneum Pending Studies Studies pending at discharge: no Medical Emergencies . Who to Call and When: Medical Emergencies: If at any time you feel your situation is an emergency, please call 911 immediately. . Non-Emergent Contact Non-Emergency issues call your: Digital Advertising Analyst . . "Provider Documentation" section prepared by Arnaud Benavidez. VTE Core Measure Inpt VTE Proph given/why not?: Treatment not indicated
[2016-05-31] MEDS ORDERED: IBUPROFEN 600 MG TAB PO PRN (18:00)
[2016-05-31] MEDS ORDERED: KETOROLAC TROMETHAMINE 30 MG/ML VIAL IV. PRN (18:00)
[2016-05-31] MEDS ORDERED: ONDANSETRON INJ 2 MG/ML 2 ML VIAL IV PRN ×2 (18:00→18:30)
[2016-05-31] MEDS ORDERED: OXYCODONE/ACETAMINOPHEN 5-325 TAB PO PRN ×2 (18:00)
[2016-05-31 18:28] LABS: HEMATOCRIT 28.2 % (37-47); MEAN CELL VOLUME 88.1 fL (80-100); MEAN CORPUSCULAR HEMOGLOBIN 29.7 pg (25-34); MEAN CORPUSCULAR HGB CONC 33.7 g/dl (32-36); MEAN PLATELET VOLUME 9.2 fL (7.4-10.4); PLATELET COUNT 269 K/uL (130-400); WHITE BLOOD COUNT 13.31 K/uL (4.8-10.8)
[2016-05-31] MEDS ORDERED: EpHEDrine SULFATE INJ 50 MG/ML AMP IV PRN (18:30)
[2016-05-31] MEDS ORDERED: ATROPINE SULFATE 0.1 MG/ML 5ML SYR IV PRN (18:30)
[2016-05-31] MEDS ORDERED: NALOXONE HCL 0.4 MG/1 ML VIAL/CARP IV PRN (18:30)
[2016-05-31] MEDS ORDERED: PHENYLEPHRINE 100MCG/ML 5ML SYR IV PRN (18:30)
[2016-05-31] MEDS ORDERED: MEPERIDINE HCL 25 MG/ML CARP IV PRN (18:30)
[2016-05-31] MEDS ORDERED: HYDROmorphone INJ 2 MG/ML SYR/VIAL IV PRN (18:30)
[2016-05-31] MEDS ORDERED: FLUMAZENIL 0.1 MG/1 ML 10 ML VIAL IV PRN (18:30)
[2016-05-31] MEDS ORDERED: LABETALOL HCL IV 5 MG/ML 20ML IV PRN (18:30)
[2016-05-31] MEDS ORDERED: FENTANYL CITRATE INJ 50 MCG/1 ML 2 ML VIAL IV PRN (18:30)
--- NOTE | 2016-05-31 18:51 | Anesthesiology Progress Note ---
Anesthesia Post Op Note Date & Time May 31, 2016 at 18:49 Vital Signs Pain Intensity: 0 Vital Signs Past 12 Hours Date Time Temp Pulse Resp B/P Pulse Ox O2 Delivery O2 Flow Rate FiO2 05/31/16 18:35 36.6 73 18 109/64 100 Nasal Cannula 2 05/31/16 18:25 71 15 102/64 100 Nasal Cannula 2 05/31/16 18:15 73 19 103/68 100 Mask 10 05/31/16 18:05 87 22 120/74 100 Mask 10 05/31/16 17:58 36.4 83 16 120/76 100 Mask 10 05/31/16 15:22 96 26 99 05/31/16 15:15 94/66 05/31/16 15:07 101 27 96 05/31/16 15:00 117/75 05/31/16 14:52 92 20 100 05/31/16 14:46 101/66 05/31/16 14:37 104 30 100 05/31/16 14:36 98 20 100 05/31/16 14:32 103/66 05/31/16 14:30 114/65 05/31/16 14:26 101/75 05/31/16 13:15 82 16 85/54 100 Room Air 97 73/56 05/31/16 13:10 83 16 101/65 100 Room Air 05/31/16 12:47 79 05/31/16 11:51 37.0 75 16 107/66 100 Room Air 05/31/16 11:51 100 Room Air Notes Mental Status: alert / awake / arousable, participated in evaluation Pt Amnestic to Procedure: Yes Nausea / Vomiting: adequately controlled Pain: adequately controlled Airway Patency, RR, SpO2: stable & adequate BP & HR: stable & adequate Hydration State: stable & adequate Anesthetic Complications: no major complications apparent The patient did well. Her postop hgb was 9.5.
[2016-05-31 18:55] VITALS: BP 106/70; TEMP 36.6; O2SAT 99
[2016-05-31] MEDS ORDERED: KETOROLAC TROMETHAMINE 30 MG/ML VIAL ONE (19:01)
[2016-05-31] MEDS ORDERED: NURSING VERBAL MED ORDER ONE (19:15)
--- NOTE | 2016-05-31 19:15 | OPERATIVE REPORT ---
DATE OF OPERATION: 05/31/2016 PREOPERATIVE DIAGNOSIS: Possible right ruptured ectopic . POSTOPERATIVE DIAGNOSIS: Ruptured ectopic of the right fallopian tube. OPERATIVE PROCEDURE: Laparoscopic right salpingectomy and evacuation of hemoperitoneum. SURGEON: Dr. Benavidez. RETAIL LOAN ORIGINATOR ASSISTANT: None. ANESTHESIA: General. ESTIMATED BLOOD LOSS: 570 mL. IV FLUIDS: 1800 mL crystalloids. URINE OUTPUT: 150 mL clear, yellow urine. ASSESSMENT: Right fallopian tube with ectopic to pathology. COMPLICATIONS: None. DISPOSITION: To recovery room. OPERATIVE FINDINGS: Upon laparoscopic examination, there was a large amount of blood and clots noted within the abdomen and pelvis, approximately 500 mL of blood was evacuated from the abdomen and pelvis. The right fallopian tube was dilated and had a 1-2 cm portion of the tube where it was ruptured and actively bleeding; therefore, decision was made to proceed with the removal of the right fallopian tube as discussed prior to her surgery. A right salpingectomy was performed without difficulty and was removed from the abdomen and sent to pathology. The patient tolerated the procedure well and was sent to recovery with stable vital signs. OPERATIVE PROCEDURE IN DETAIL: The patient was taken to the operating room where general anesthesia was administered. Once anesthesia was found to be adequate, the patient was placed in the dorsal lithotomy position and was prepped and draped in a manner appropriate for the procedure. A weighted speculum was placed into the vagina and the anterior lip of the cervix was grasped with an Allis clamp. A Hulka uterine manipulator was placed within the uterus in an anteverted fashion. The weighted speculum was removed from the vagina. A sterile Noel catheter was placed within the bladder and remained indwelling throughout the entire procedure. The patient was then ready for the laparoscopic portion of the procedure. Attention was directed towards the umbilicus where 0.5% Marcaine was injected below the umbilicus and a 11 mm skin incision was made below the umbilicus in a vertical fashion. A Veress needle was then placed within the abdomen. Normal saline was injected with no fecal content aspirated. Pneumoperitoneum was then created. The Veress needle was then removed and a 11 mm trocar was then placed within the abdomen under direct laparoscopic visualization. A second 11 mm skin incision was made 2 fingerbreadths above the pubic symphysis at midline in a horizontal fashion. A second 11 mm trocar was then placed within the abdomen under direct laparoscopic visualization. The patient was then placed in Trendelenburg position and the bowel was displaced superiorly away from the pelvis. It was noted that there was a large amount of clots within the pelvis and as much of the blood was evacuated. Attention was then directed towards the right adnexa where the ectopic was noted to be within the right fallopian tube. The right tube was ruptured and was actively bleeding; therefore, the decision was made to remove the right fallopian tube along with the ectopic . The right fallopian tube was removed with the LigaSure at its attachments without difficulty. Excellent hemostasis was noted. The specimen was then placed within the inside EndoCatch bag and removed from the suprapubic trocar without difficulty. Once the specimen was removed, inspection of the right adnexa was noted to be hemostatic. No other intra-abdominal or pelvic pathology was noted. At this point, the procedure was found to be complete. All instruments were then removed from the abdomen as much CO2 gas was allowed to percolate through open cannulas. The cannulas were then removed. The fascia of both incisions were reapproximated with 0 Vicryl suture in a [id number] interrupted fashion. Both skin incisions were then closed with 4-0 Monocryl in a subcuticular fashion. Excellent hemostasis was noted at both incisions. The Hulka uterine manipulator was removed from the uterus along with the sterile Noel catheter. All sponge and instrument counts were found to be correct x2. The patient tolerated the procedure well and was sent to recovery with stable vital signs. I attest to the content of the Intraoperative Record and any orders documented therein. Any exceptions are noted below. BHAVYA
[2016-05-31 19:45] VITALS: BP 103/68; PULSE 88; O2SAT 100
[2016-05-31] MEDS ORDERED: PERCOCET HOME PACK PO SCH (20:00)
--- NOTE | 2016-06-02 08:47 | DIAGNOSTIC IMAGING REPORT ---
PELVIC ULTRASOUND, TRANSABDOMINAL AND TRANSVAGINAL HISTORY: EVALUATE OB-IRON MINER BLASTING/VAGINAL BLEEDING COMPARISON: Pelvic ultrasound 05/25/2016. FINDINGS: Uterus: 8.7 x 4.5 x 6.2 cm. The uterus is retroflexed. Small hypoechoic lesion at the uterine fundus favors a fibroid. This measures 5 mm. Endometrial stripe: 5 mm in thickness. No intrauterine gestational sac identified. Right ovary: Normal in size and contains a few small cysts. There is normal color-flow the right ovary. However, there is a tubular structure which appears to be adjacent to the right ovary within the right adnexa which measures 3.3 x 2.4 cm. This previous measured 1.4 x 1.4 cm. This is difficult to separate from the ovary. However, given the increase in size and hemoperitoneum, this finding is highly suspicious for a ruptured ectopic . This should be confirmed with beta-hCG. Left ovary: Normal in size and demonstrates normal color flow. Miscellaneous:Moderate complex fluid seen throughout the pelvis most pronounced within the right adnexa. This is consistent with hemoperitoneum. This is significantly progressed. IMPRESSION: There is a tubular structure which appears to be adjacent to the right ovary within the right adnexa which measures 3.3 x 2.4 cm. This previously measured 1.4 x 1.4 cm. This is difficult to separate from the ovary. However, given the increase in size and moderate hemoperitoneum, this finding is consistent with a ruptured ectopic until proven otherwise. INSECTICIDE MAKER consultation is recommended. Findings were discussed with Dr. Castelan at 2:20 PM on 05/31/2016. Electronically signed by: James Cloud M.D. 05/31/2016 2:21 PM Dictated Date/Time: 05/31/2016 2:11 PM
== END 2016-05-31 17:54 | disposition home or self-care (01) ==
LOC: EDBD 11:43 → C.EDA 11:45
DX: O00.90 Unspecified ectopic pregnancy without intrauterine pregnancy (principal); Z83.3 Family history of diabetes mellitus; Z82.49 Family history of ischemic heart disease and other diseases of the circulatory system; I95.9 Hypotension, unspecified; Z90.79 Acquired absence of other genital organ(s)